=== PATIENT | male | born 1940 | race Caucasian/White ===

== ENCOUNTER → 2016-11-12 | Outpatient (CLI) | payer OTHER, BC ==
[2016-11-12 18:09] LABS: HEMATOCRIT 42.8 % (42.0-52.0); HEMOGLOBIN 15.3 g/dL (14.0-18.0); MEAN CORPUSCULAR HEMOGLOBIN 29.3 PG (27-31); MEAN CORPUSCULAR HGB CONC 35.7 g/dL (33-37); MEAN PLATELET VOLUME 9.5 FL (7.4-12.2); RDW COEFFICIENT OF VARIATION 13.7 % (11.5-14.5); RED BLOOD COUNT 5.22 10^6/uL (4.70-6.10); WHITE BLOOD COUNT 7.21 10^3/uL (4.8-10.8)
[2016-11-12 18:31] LABS: ASPARTATE AMINO TRANSFERASE 31 IU/L (21-57); BLOOD UREA NITROGEN 19 mg/dL (7-22); BUN/CREATININE RATIO 21.11 (6-20); CALCIUM 8.6 mg/dL (8.7-10.7); CHLORIDE 93 meq/L (98-112); CREATININE 0.9 mg/dL (0.70-1.50); GLUCOSE 86 mg/dL (78-110); HDL CHOLESTEROL 36 mg/dL (40-150); SODIUM 130 meq/L (135-145); TOTAL PROTEIN 7.3 g/dL (6.1-8.0); TRIGLYCERIDES 78 mg/dL (44-200)
== END ==
LOC: LAB 09:57
PROVIDERS: ATTEND Family Medicine
DX: E78.5 Hyperlipidemia, unspecified (principal); R50.9 Fever, unspecified
CPT/HCPCS: 80053; 80061; 85027

== ENCOUNTER 2016-11-13 08:04 | Emergency (ER) | payer OTHER, BC ==
[2016-11-13] MEDS ORDERED: NORMAL SALINE 10 ML SYRINGE FLUSH IVP PRN (08:25)
[2016-11-13] MEDS ORDERED: Sodium Chloride 0.9% 1,000 ML PRIMARY IV ONE (08:25)
[2016-11-13 08:28] VITALS: RESP 20; TEMP 98.9
[2016-11-13] MEDS ORDERED: Lidocaine 1% 10 MG/ML - 20 ML VIAL SUBCUT ONE (08:29)
[2016-11-13 08:53] LABS: HEMATOCRIT 42.3 % (42.0-52.0); HEMOGLOBIN 15.3 g/dL (14.0-18.0); MEAN CORPUSCULAR HEMOGLOBIN 29.6 PG (27-31); MEAN CORPUSCULAR HGB CONC 36.2 g/dL (33-37); MEAN PLATELET VOLUME 8.5 FL (7.4-12.2); RDW COEFFICIENT OF VARIATION 13.7 % (11.5-14.5); RED BLOOD COUNT 5.17 10^6/uL (4.70-6.10); WHITE BLOOD COUNT 5.56 10^3/uL (4.8-10.8)
--- NOTE | 2016-11-13 08:53 | EKG ---
[address] [address] Measurements Intervals [place] Rate: 79 P: 4 RI: 194 QRS: 47 QRSD: 87 T: 56 QT: 350 QTc: 385 Interpretive Statements SINUS RHYTHM INDETERMINATE AXIS ATYPICAL ECG Compared to ECG 09/11/2015 10:48:47 Indeterminate axis now present First degree AV block no longer present Electronically Signed On 11-13-16 17:25:44 MST by Oni Andersen [email or web address]
[2016-11-13 09:13] LABS: BAND NEUTROPHILS % 4 % (0-10); BASOPHILS % (MANUAL) 0 % (0-1); EOSINOPHILS % (MANUAL) 0 % (0-8); LYMPHOCYTES % (MANUAL) 20 % (10-50); MONOCYTES % (MANUAL) 6 % (0-12); NEUTROPHILS % (MANUAL) 70 % (50-80); PLATELET MORPHOLOGY COMMENT NORMAL MORPHOLOGY (NORM)
[2016-11-13 09:14] LABS: ASPARTATE AMINO TRANSFERASE 34 IU/L (21-57); BLOOD UREA NITROGEN 17 mg/dL (7-22); BUN/CREATININE RATIO 24.28 (6-20); CALCIUM 8.7 mg/dL (8.7-10.7); CHLORIDE 93 meq/L (98-112); CREATININE 0.7 mg/dL (0.70-1.50); GLUCOSE 94 mg/dL (78-110); POTASSIUM 4.3 meq/L (3.8-5.2); SODIUM 129 meq/L (135-145); TOTAL PROTEIN 7.2 g/dL (6.1-8.0)
--- NOTE | 2016-11-13 10:02 | DI ---
XR CXR 2VW PA/LAT,11/13/2016 8:25 AM: Clinical History: Cough, fever and syncope. Previous Exam: None at this facility. Findings: PA and lateral views of the chest are obtained, and demonstrate mild dextroscoliosis of the midthorac ic spine. Degenerative changes are noted of the glenohumeral joints. There is no infiltrate nor effusion. Impression: Dextroscoliosis of the thoracic spine otherwise unremarkable.
--- NOTE | 2016-11-13 10:31 | PDOC ---
General Adult HPI - General Chief Complaint: Syncope / Near-Syncope Stated Complaint: syncope, cough, fever and chills Date Seen by Provider: 11/13/16 Time Seen by Provider: 08:05 Source: POSITIVE: Patient, Spouse Exam Limitations: POSITIVE: No limitations Nurse's Notes Reviewed & Considered: Yes - History of Present Illness Initial Comment: The patient is a 75-year-old male. 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 He states he began to feel dizzy and passed out, striking his face above his right eye on the toilet and sustaining a laceration above the right eye. His heard him fall and immediately went into the bathroom to check on the patient. The states that the patient was not unconscious but was "groggy". Patient states he's had "a bad cold"for the past several days with cough minimally productive and fevers and chills. He states he did receive an influenza vaccination last year. Patient had no chest pain. No focal sensory or motor symptoms. He feels better upon arrival to the emergency room. He is brought to the emergency room by private auto by his . He's had a hernia repair and an appendectomy. History of hypertension and hypercholesterolemia. No GI or symptoms. No headache. Have you received a tetanus shot in the past 10 years?: Yes Body Location Affected: REPORTS: Face (Above right eyelid, laceration), Other ( Syncope and URI symptoms as above) Timing: REPORTS: Abrupt Duration: 1/2 hour (Syncope one half hour ago; fever or chills and cough for a few days) Severity: Moderate Quality: REPORTS: Other (Patient denies any pain anywhere) Context: REPORTS: Standing (Syncope while standing and shaving as above), Recent Trauma (Laceration above right eye as above; see diagram) Modifying Factors: improves with: Coughing Similar Symptoms Previously: No Recent Care Received: REPORTS: Recently Seen, Treated by MD (Recently seen by his primary care provider) Any Prior Injuries Related to Current Complaint?: Yes (facial laceration as above) - Patient Home Medications Home Medications: Home Medications Aspirin [Aspir 81] 81 mg PO DAILY tab 11/15/14 Testosterone [Androgel] 1 packet TD QD #90 packet 11/15/14 Losartan Potassium 50 mg PO DAILY #90 tab 12/04/15 Meloxicam 7.5 mg PO QOD PRN #30 tab 12/04/15 Amlodipine Besylate 10 mg PO DAILY #90 tab 01/13/16 Simvastatin 20 mg PO QHS #90 tab 01/29/16 - Patient Allergies Allergies/Adverse Reactions: Allergies Allergy/AdvReac Type Severity Reaction Status Date / Time hydrochlorothiazide Allergy Severe RASH Verified 11/13/16 08:14 Past Medical History - heen HEENT History: Glaucoma, Cataracts Cardiovascular History: Hypertension, Hyperlipidemia Respiratory History: Denies History Gastrointestinal History: Denies History Genitourinary History: Denies History Endocrine History: Denies History Musculoskeletal History: Arthritis Additional Musculoskeletal History: LEFT SHOULDER PAIN, WEAKNESS Neurological History: Other (please comment) Additional Neurological History: MEMORY PROBLEMS Blood Disorders: Denies History Psychiatric History: Denies History Cancer History: Denies History In Past Year Been Physically Harmed or Verbally Threatened: No History of MDRO: No Tobacco Use: Never Smoker Alcohol Use: Rarely Substance Use Type: None Previous Surgical History: Yes Type / Date of Surgery: LEFT SHOULDER/ COLONOSCOPY/ TONSILLECTOMY/ UMBILICAL HERNIA/EYE SURGERY BILATERAL FOR GLAUCOMA Anesthesia Reactions: No Malignant Hyperthermia: No Significant Family History: Cancer Additional Family History: SISTER- COLON [place] Past Medical History Reviewed: Reviewed - No Changes ROS - Limitations ROS Limitations: No Limitations Constitution: REPORTS: Chills, Fever Cardiovascular: REPORTS: Denies Cardiac Symptoms Respiratory: REPORTS: Cough Non Productive Neurological: REPORTS: Denies Neuro Symptoms Gastrointestinal: REPORTS: Denies GI Symptoms Endocrine: REPORTS: Denies Symptoms Musculoskeletal: REPORTS: Denies MS Symptoms Genitourinary: REPORTS: Denies Symptoms Eyes: REPORTS: Denies Symptoms ENT: REPORTS: Denies Symptoms Skin: REPORTS: Other (Laceration above right eye as above) Lympathic: REPORTS: Denies Lympathic Symptoms Immunologic: POSITIVE: Denies Symptoms Psychiatric: POSITIVE: Denies Psych Symptoms General Adult Exam - General Appearance General Appearance: POSITIVE: Alert, Cooperative, No Acute Distress. NEGATIVE: No Evidence of Trauma (Laceration above right eye) - HEENT HEENT: POSITIVE: Head Inspection Nml, Eyes Inspection Nml, Ears Inspection Nml, Nose Inspection Nml, Oral/Dental Inspect. Nml, Pharynx Inspect. Nml, PERRL, EOMI - Pupils Pupil Size: 3 mm: Bilateral (PERRLA) - Neck Neck: POSITIVE: Normal Inspection, Thyroid Normal - Respiratory Respiratory: POSITIVE: No Respiratory Distress, Breath Sounds Normal, Chest Non- Tender - Cardiovascular Cardiovascular: POSITIVE: Regular Rate & Rhythm, No Murmur, No Gallop, PMI Normal Peripheral Pulses: Radial (R): 2+, Radial (L): 2+ - Abdomen Abdomen: Soft: (All Quadrants), Normal Bowel Sounds: (All Quadrants), Denies Tenderness: (All Quadrants), No Splenomegaly: (All Quadrants), No Hepatomegaly: (All Quadrants), No Guarding: (All Quadrants), No Rebound: (All Quadrants), No Palpable Pulse: (All Quadrants), No Palpabale Mass: (All Quadrants), No Distention: (All Quadrants), No Rigidity: (All Quadrants) - Back Back: POSITIVE: Normal Inspection - Skin Skin: POSITIVE: Normal Color, Warm, Dry, No Rash, Other (Facial laceration as above; see diagram) - Extremities Extremity: Non-Tender: (All Extremities), Normal ROM: (All Extremities), Normal Inspection: (All Extremities) - Neurological / Psychological Neurological: POSITIVE: Oriented X3, hand glass cutter Normal As Tested, Motor Normal, Sensation Normal, 5, 6 Images - Head Head: 1 - 4 cm laceration extending into subcutaneous tissue. Small sub- conjunctival hemorrhage lateral aspect of right eye; eye exam otherwise normal Procedures - Laceration/Wound Repair Did patient have a laceration repair: Yes Site of Laceration/Wound: Above right eye Wound Length (cm): 4 Wound's Depth, Shape: Into subcutaneous tissue, Irregular Time of Suture Placement:: 09:00 Distal CMS: Yes Skin Prep: Sterile Field Maintained, Sterile Drapes Applied, Sully-Lois Local Anesthesia Used - Indicate Amt Used in Comment: Lidocaine 1%: Yes Irrigated w/ Saline (mL): 20 Wound Explored: No foreign body removed Wound Debrided: Minimal Wound Repaired With: Sutures single layer Suture Size/Type: 6:0 Number of Sutures: 8 Layer Closure?: No Drain Placement: No Sterile Dressing Applied?: No General Adult Progress - Results Reviewed by me Lab Results Reviewed: Yes (influenza positive) Lab Results:: Laboratory Results 11/13/16 Range/Units 08:40 WBC 5.56 (4.8-10.8) 10^3/uL RBC 5.17 (4.70-6.10) 10^6/uL Hgb 15.3 (14.0-18.0) g/dL Hct 42.3 (42.0-52.0) % MCV 81.8 (80-90) FL MCH 29.6 (27-31) PG MCHC 36.2 (33-37) g/dL RDW Std Deviation 40.3 (39-50) fL RDW Coeff of Geoff 13.7 (11.5-14.5) % Plt Count 158 (140-350) 10*3/uL MPV 8.5 (7.4-12.2) FL Neutrophils % (Manual) 70 (50-80) % Band Neutrophils % 4 (0-10) % Lymphocytes % (Manual) 20 (10-50) % Monocytes % (Manual) 6 (0-12) % Eosinophils % (Manual) 0 (0-8) % Basophils % (Manual) 0 (0-1) % Metamyelocytes % Not Reportable Myelocytes % Not Reportable Promyelocytes % Not Reportable Blast Cells Not Reportable WBC Morphology Comment Normal morphology (NORM) Plt Morphology Comment Normal morphology (NORM) RBC Morph Comment Normal morphology (NORM) Sodium 129 L (135-145) meq/L Potassium 4.3 (3.8-5.2) meq/L Chloride 93 L (98-112) meq/L Carbon Dioxide 25 (23-33) meq/L Anion Gap 11 (5-20) BUN 17 (7-22) mg/dL Creatinine 0.7 (0.70-1.50) mg/dL Estimated GFR Manager Assessment BUN/Creatinine Ratio 24.28 H (6-20) Glucose 94 (78-110) mg/dL Calculated Osmolality 269.0 (267-292) mOsm/kg Calcium 8.7 (8.7-10.7) mg/dL Total Bilirubin 1.0 (0.3-1.2) mg/dL AST 34 (21-57) IU/L ALT 32 (21-72) IU/L Alkaline Phosphatase 66 (38-126) IU/L Total Protein 7.2 (6.1-8.0) g/dL Albumin 4.3 (3.5-4.8) g/dL Globulin 2.9 (2.50-4.10) g/dL Albumin/Globulin Ratio 1.40 (1.3-2.0) mg/g EKG Interpreted/Reviewed By Me:: Yes (normal sinus rhythm; normal) EKG Interpretation:: POSITIVE: Normal Sinus Rhythm, Normal Rate, Normal Intervals, Normal [place], Normal QRS, Normal ST/T - Patient's Progress Pain Medication Addressed: POSITIVE: Not Applicable School/Work Release Addressed: POSITIVE: Not Applicable Re-Examine Time: 09:55 Re-Examine Comment: Patient was kept on dermatology physician assistant throughout his stay in the emergency room; patient remained in normal sinus rhythm. He remained essentially asymptomatic throughout his stay in the emergency room and primary closure of his facial laceration was completed. I believe his syncope was most likely due to feeling ill from his influenza. Since patient has been symptomatic for several days, he is not a candidate for antiviral therapy. Status: POSITIVE: Improved, Re-Examined Antibiotics Given: No CVA/Syncope: POSITIVE: EKG. NEGATIVE: t-PA Considered - Consult Counseled: POSITIVE: Patient, Family, RE: Lab Results, RE: Radiology Results, RE : DX, RE: Need for F/U Patient Care Time - Estimated PCT Patient Care Time (In Minutes): 48 Vital Signs - Recent Vital Signs Vital Signs: Vital Signs (Last 8 hours) Temp Pulse Pulse Pulse Pulse Resp BP 11/13/16 08:05 98.9 F 84 20 149/78 11/13/16 08:04 79 89 96 BP BP BP Pulse Ox 11/13/16 08:05 92 11/13/16 08:04 141/74 129/71 121/71 - VS Reviewed Vital Signs Reviewed: Yes Discharge Clinical Impression: Syncope, Influenza, Laceration Discharge Disposition: Discharged to Home Condition: Fair Patient Instructions Given at Discharge: Laceration (ED), Syncope (ED), Influenza (ED) Additional Instructions: Please return in 5 days for suture removal. I believe you're syncopal episode was most likely due to your feeling ill due to influenza. Her influenza test was positive here in the emergency room. Since you have been ill with influenza for several days, you are not a candidate for antiviral medication. Your blood tests and chest x-ray were normal. Please rest today and increase fluids. Get up from a sitting or lying position slowly. Return anytime if condition worsens. Observe good handwashing and do not cough or sneeze around other people; no kissing, sharing drinking glasses, etc. Follow Up With: SUZI HERRERA [Primary Care Provider] - (Instructions as above. Return in 5 days for suture removal. Return anytime if condition worsens in any way.)
== END 2016-11-13 10:18 | disposition home or self-care (01) ==
LOC: ER 08:04
DX: R55 Syncope and collapse (principal); J11.1 Influenza due to unidentified influenza virus with other respiratory manifestations; S01.111A Laceration without foreign body of right eyelid and periocular area, initial encounter; W22.8XXA Striking against or struck by other objects, initial encounter
CPT/HCPCS: 36415; 71020; 80053; 85007; 87040; 87804; 93005; 93010; 96360; 96361; 99283; J2001; J7030

== ENCOUNTER → 2016-11-23 | Outpatient (CLI) | payer OTHER, BC | LOC: MMPC 09:00 | PROVIDERS: ATTEND Family Medicine | DX: I10 Essential (primary) hypertension (principal); E78.5 Hyperlipidemia, unspecified; R61 Generalized hyperhidrosis | CPT/HCPCS: 99213; G0463 ==

== ENCOUNTER → 2017-01-26 | Outpatient (CLI) | payer OTHER, BC | LOC: MMPC 11:11 | PROVIDERS: ATTEND Surgery | DX: Z87.898 Personal history of other specified conditions (principal) | CPT/HCPCS: 99201; G0463 ==